=== PATIENT | female | born 1995 | race Caucasian/White ===

== ENCOUNTER 2018-10-23 16:05 | Emergency (ER) | payer BC ==
[~2018-10-23 16:05] MED LIST: LEVO1IUD6; [UNRECOGNIZED DRUG - OTHER]; [UNRECOGNIZED DRUG - OTHER]
--- NOTE | 2018-10-23 16:14 | ER Report ---
History and Physical Time Seen By MD: 16:14 Hx. of Stated Complaint: MIGRAINE HPI/ROS CHIEF COMPLAINT: Headache HISTORY OF PRESENT ILLNESS: 23-year-old female patient presents to emergency room with complaint of migraine. Patient states that this been going on since about 11:00 this morning. She states she's taken to of the Mary migraine medication with no improvement. Patient states that she has had migraines in the past, last time she had a similar migraine was approximately 4 years ago. She states at that time that she had numbness to the left arm as well as numbness to her face. She states that has occurred again. She states that she has not had any weakness to the extremities. She denies any visual changes. She states she's been nauseated, however she denies any vomiting. Patient states that she is not on any medication prophylactically for migraines. Patient denies any visual changes. REVIEW OF SYSTEMS: Respiratory: No cough, no dyspnea. Cardiovascular: No chest pain, no palpitations. Gastrointestinal: No vomiting, no abdominal pain. Musculoskeletal: No back pain. Allergies: Uncoded Allergies: PCN (Allergy, Mild, RASH, 01/31/13) Home Meds Reported Medications Levonorgestrel 17.5 MCG/DAY (Kyleena 17.5 MCG/DAY) 17.5 Mcg/24 Hour (5 Years) Iud 06/20/18 Past Medical/Surgical History Patient has a past medical history of heart murmur, asthma. Patient has a surgical history of wisdom teeth removal, tonsillectomy. Reviewed Nurses Notes: Yes Hx Smoking: No Smoking Status: Never Smoker Exposure to Second Hand Smoke?: No Hx Substance Use Disorder: No Hx Alcohol Use: No Constitutional Vital Sign - Last 24 Hours 10/23/18 10/23/18 10/23/18 10/23/18 16:10 16:30 17:00 17:30 Temp 97.6 Pulse 62 61 63 ??? Resp 16 B/P (MAP) 116/79 115/80 (92) 116/71 (86) 123/85 (98) Pulse Ox 97 97 99 O2 Delivery Room Air 10/23/18 10/23/18 10/23/18 18:00 18:30 19:00 Pulse 63 69 57 Resp 20 17 13 B/P (MAP) 111/80 (90) 120/70 (87) 110/76 (87) Pulse Ox 97 98 95 Physical Exam General Appearance: The patient is alert, has no immediate need for airway protection and no current signs of toxicity. Eyes: Pupils equal and round no injection. ENT: Tympanic membranes are pearly-castaneda, auditory canals are patent, mixed membranes are moist. Respiratory: Chest is non tender, lungs are clear to auscultation. Cardiac: regular rate and rhythm Gastrointestinal: Abdomen is soft and non tender, no masses, bowel sounds normal. Musculoskeletal: Neck: Neck is supple and non tender. Extremities have full range of motion and are non tender. Skin: No rashes or lesions. Neuro: Patient is alert and oriented 4, cranial nerves II through XII grossly intact. DIFFERENTIAL DIAGNOSIS: After history and physical exam differential diagnosis was considered for headache including but not limited to subarachnoid hemorrha ge, migraine headache, tension headache and infectious causes such as meningitis, pharyngitis and sinusitis. Medical Decision Making Data Points Result Diagram: 10/23/18 1648 10/23/18 1648 Laboratory Hematology Test 10/23/18 16:48 Red Blood Count 4.76 M/uL (4.17-5.56) Mean Corpuscular Volume 90.4 fL (80.0-96.0) Mean Corpuscular Hemoglobin 30.9 pg (26.0-33.0) Mean Corpuscular Hemoglobin Concent 34.2 g/dL (32.0-36.0) Red Cell Distribution Width 12.9 % (11.5-14.5) Mean Platelet Volume 9.0 fL (7.2-11.1) Neutrophils (%) (Auto) 66.9 % (39.4-72.5) Lymphocytes (%) (Auto) 23.6 % (17.6-49.6) Monocytes (%) (Auto) 7.6 % (4.1-12.4) Eosinophils (%) (Auto) 0.6 % (0.4-6.7) Basophils (%) (Auto) 1.3 % (0.3-1.4) Nucleated RBC Relative Count (auto) 0.0 /100WBC Neutrophils # (Auto) 6.0 K/uL (2.0-7.4) Lymphocytes # (Auto) 2.1 K/uL (1.3-3.6) Monocytes # (Auto) 0.7 K/uL (0.3-1.0) Eosinophils # (Auto) 0.1 K/uL (0.0-0.5) Basophils # (Auto) 0.1 K/uL (0.0-0.1) Nucleated RBC Absolute Count (auto) 0.00 K/uL Erythrocyte Sedimentation Rate 2 mm/HOUR (0-20) Sodium Level 138 mmol/L (137-145) Potassium Level 3.4 mmol/L (3.5-5.0) Chloride Level 103 mmol/L (98-107) Carbon Dioxide Level 27 mmol/L (22-31) Blood Urea Nitrogen 12 mg/dl (7-18) Creatinine 0.70 mg/dl (0.52-1.04) Glomerular Filtration Rate Calc > 60.0 Random Glucose 92 mg/dl (75-110) Calcium Level 9.5 mg/dl (8.4-10.2) Total Bilirubin 0.5 mg/dl (0.2-1.3) Aspartate Amino Transf (AST/SGOT) 33 U/L (0-35) Alanine Aminotransferase (ALT/SGPT) 27 U/L (0-56) Alkaline Phosphatase 54 U/L (0-126) C-Reactive Protein < 0.5 mg/dl (<1.0) Total Protein 7.4 g/dl (6.3-8.2) Albumin 4.4 g/dl (3.5-5.0) Human Chorionic Gonadotropin, Qual Negative (NEGATIVE) Chemistry Test 10/23/18 16:48 White Blood Count 8.9 k/uL (4.5-11.0) Red Blood Count 4.76 M/uL (4.17-5.56) Hemoglobin 14.7 g/dL (12.0-16.0) Hematocrit 43.0 % (34.0-47.0) Mean Corpuscular Volume 90.4 fL (80.0-96.0) Mean Corpuscular Hemoglobin 30.9 pg (26.0-33.0) Mean Corpuscular Hemoglobin Concent 34.2 g/dL (32.0-36.0) Red Cell Distribution Width 12.9 % (11.5-14.5) Platelet Count 262 K/uL (150-450) Mean Platelet Volume 9.0 fL (7.2-11.1) Neutrophils (%) (Auto) 66.9 % (39.4-72.5) Lymphocytes (%) (Auto) 23.6 % (17.6-49.6) Monocytes (%) (Auto) 7.6 % (4.1-12.4) Eosinophils (%) (Auto) 0.6 % (0.4-6.7) Basophils (%) (Auto) 1.3 % (0.3-1.4) Nucleated RBC Relative Count (auto) 0.0 /100WBC Neutrophils # (Auto) 6.0 K/uL (2.0-7.4) Lymphocytes # (Auto) 2.1 K/uL (1.3-3.6) Monocytes # (Auto) 0.7 K/uL (0.3-1.0) Eosinophils # (Auto) 0.1 K/uL (0.0-0.5) Basophils # (Auto) 0.1 K/uL (0.0-0.1) Nucleated RBC Absolute Count (auto) 0.00 K/uL Erythrocyte Sedimentation Rate 2 mm/HOUR (0-20) Glomerular Filtration Rate Calc > 60.0 Calcium Level 9.5 mg/dl (8.4-10.2) Total Bilirubin 0.5 mg/dl (0.2-1.3) Aspartate Amino Transf (AST/SGOT) 33 U/L (0-35) Alanine Aminotransferase (ALT/SGPT) 27 U/L (0-56) Alkaline Phosphatase 54 U/L (0-126) C-Reactive Protein < 0.5 mg/dl (<1.0) Total Protein 7.4 g/dl (6.3-8.2) Albumin 4.4 g/dl (3.5-5.0) Human Chorionic Gonadotropin, Qual Negative (NEGATIVE) EKG/Imaging Imaging EXAMINATION: Head CT without intravenous contrast HISTORY: Headache with spotty vision in both eyes and decreased peripheral vision. Left arm numbness. COMPARISON: 01/31/2013. TECHNIQUE: Contiguous axial images were obtained from the skull base to the vertex without intravenous contrast. Sagittal and coronal reformatted images are also submitted. One of the following dose optimization techniques was utilized in the performance of this exam: Automated exposure control; adjustment of the mA and/or kV according to the patient's size; or use of an iterative rec onstruction technique. Specific details can be referenced in the facility's radiology CT exam operational policy. FINDINGS: Brain and intracranial structures: Ventricles, sulci, and cisterns are normal in size. Castaneda-white matter differentiation is maintained. No midline shift, acute hemorrhage, acute infarct, or mass. Calvarium / scalp: Negative. Skull base / visualized face: Small amount of air in the veins of the right face in the deep soft tissues and in the right temporal region, likely related to venous access. Visualized sinuses / orbits: Small mucous retention cyst in the right maxillary sinus. IMPRESSION: No CT evidence of acute intracranial pathology. Report Dictated By: Hernesto Campos MD at 10/23/2018 6:08 PM Report E-Signed By: Hernesto Campos MD at 10/23/2018 6:22 PM ED Course/Re-evaluation ED Course Patient is admitted to examined, history and physical were obtained. Differential diagnoses were considered. Due to the headache as well as the numbness of the left extremity and face we did go ahead and do a CT scan of the head. CT scan of the head was normal. On reevaluation after getting the results of the CT scan patient states that her headache is essentially gone. Is gone from a 6 out of 10 to a 2 out of 10. Patient states that the numbness and tingling has also gone. Patient states that she is ready to go home. We discussed doing any medications at this time which she said she does not feel that she needed. We will go ahead and discharge her home this time. We did discuss differences between tension headache and migraine. With the patient having pain just to the right side of the head is my believe that she does have more of a migraine, which will also take into account the numbness that she is having. Patient verbalized understanding and agreement. We will go ahead and discharge home at this time. She is follow-up with her primary care provider in the next week. Decision to Disposition Date: October 23, 2018 Decision to Disposition Time: 18:28 Depart Departure Latest Vital Signs Vital Signs Date Time Temp Pulse Resp B/P (MAP) Pulse Ox O2 Delivery O2 Flow Rate FiO2 10/23/18 19:00 57 13 110/76 (87) 95 10/23/18 16:10 97.6 Room Air Impression: Primary Impression: Migraine Condition: Improved Disposition: HOME OR SELF-CARE Patient Instructions: Migraine Headache (ED) Additional Instructions: Increase fluid intake. Get plenty of rest. Follow up with your primary care provider in the next week. Return to the ER if condition worsens. You can keep a journal for your headaches to find any possible triggers for your headaches. Problem Qualifiers Primary Impression: Migraine Migraine type: without aura Status migrainosus presence: without status migrainosus Intractability: not intractable Qualified Codes: G43.009 - Migraine without aura, not intractable, without status migrainosus YOUNG SINGER October 23, 2018 16:14
[2018-10-23] MEDS ORDERED: NS(*) 0.9% 1000 ML BAG 1,000 ML IV ONE (16:22)
[2018-10-23 17:00] LABS: PLATELET COUNT, AUTOMATED 262 K/uL (150-450)
--- NOTE | 2018-10-23 18:25 | RADIOLOGY IMAGING REPORT ---
FACILITY: [facility] [place] PATIENT NAME: Del Leiva : 1995 MR: [id number] V: [id number] EXAM DATE: [id number] ORDERING PHYSICIAN: YOUNG SINGER TECHNOLOGIST: Location: [facility] Patient: Del Leiva : 1995 Visit/Account:[id number] Date of Sevice: 10/23/2018 EXAMINATION: Head CT without intravenous contrast HISTORY: Headache with spotty vision in both eyes and decreased peripheral vision. Left arm numbness . COMPARISON: 01/31/2013. TECHNIQUE: Contiguous axial images were obtained from the skull base to the vertex without intraven ous contrast. Sagittal and coronal reformatted images are also submitted. One of the following dose optimization techniques was utilized in the performance of this exam: Autom ated exposure control; adjustment of the mA and/or kV according to the patient's size; or use of an i terative reconstruction technique. Specific details can be referenced in the facility's radiology C T exam operational policy. FINDINGS: Brain and intracranial structures: Ventricles, sulci, and cisterns are normal in size. Castaneda-white ma tter differentiation is maintained. No midline shift, acute hemorrhage, acute infarct, or mass. Calvarium / scalp: Negative. Skull base / visualized face: Small amount of air in the veins of the right face in the deep soft ti ssues and in the right temporal region, likely related to venous access. Visualized sinuses / orbits: Small mucous retention cyst in the right maxillary sinus. IMPRESSION: No CT evidence of acute intracranial pathology. Report Dictated By: Hernesto Campos MD at 10/23/2018 6:08 PM Report E-Signed By: Hernesto Campos MD at 10/23/2018 6:22 PM WSN:[id number]
[2018-10-23 19:00] VITALS: BP 110/76
== END 2018-10-23 19:14 | disposition home or self-care (01) ==
LOC: ER 16:10
DX: G43.009 Migraine without aura, not intractable, without status migrainosus (principal)
CPT/HCPCS: 70450; 84703; 85025; 85651; 86140; 96360; 99284; J7030; 82040; 82247; 82310; 82374; 82435; 82565; 82947; 84075; 84132; 84155; 84295; 84450; 84460; 84520